=== PATIENT | male | born 1990 | race Caucasian/White ===

== ENCOUNTER 2016-07-28 19:40 | Emergency (ER) | payer OTHER ==
[~2016-07-28] VITALS: Ht 177.8 cm; Wt 119.1 kg
[2016-07-28] MEDS ORDERED: MIRALAX17 GM PO (23:45)
[2016-07-28 23:57] VITALS: BP 125/79
== END 2016-07-28 23:58 | disposition home or self-care (01) ==
LOC: EME 19:40
DX: F84.0 Autistic disorder (principal); F79 Unspecified intellectual disabilities; R45.4 Irritability and anger; K59.00 Constipation, unspecified
CPT/HCPCS: 74000; 99281; 99284

== ENCOUNTER 2016-10-22 12:04 | Emergency (ER) | payer OTHER ==
[~2016-10-22] VITALS: Ht 172.7 cm; Wt 120.6 kg
[~2016-10-22 12:04] MED LIST: MIRALAX17 GM PO
[2016-10-22 13:02] LABS: EOSINOPHIL (%) 2.1 % (0-5); EOSINOPHIL COUNT 0.1 K/uL (0-0.3); HEMATOCRIT 44.7 % (38.0-50.0); IMMATURE GRANULOCYTE (%) 0.3 % (0.0-0.7); LYMPHOCYTE COUNT 2.5 K/uL (1.0-2.8); MCH 29.3 PG (29.0-34.0); MCHC 33.3 G/DL (30.0-36.0); MEAN PLAT.VOLUME 10.6 uM^3 (9.0-12.4); MONOCYTE (%) 9.3 % (3-12); MONOCYTE COUNT 0.6 K/uL (0-0.8); NEUTROPHIL (%) 47.7 % (45-76); PLATELET COUNT 266 K/uL (156-360); RBC DIS.WIDTH-CV 12.4 % (11.8-14.6); RED BLOOD COUNT 5.08 M/uL (4.00-5.50); WHITE BLOOD COUNT 6.2 K/uL (4.1-10.2)
[2016-10-22 13:12] LABS: CHLORIDE 105 mEq/L (99-109); SODIUM 141 mEq/L (136-147)
[2016-10-22 13:14] LABS: GLUCOSE 101 mg/dL (70-99)
[2016-10-22 13:16] LABS: ANION GAP 11 MEQ/L (2-14)
[2016-10-22 13:18] LABS: GFR ESTIMATE (CALCULATED) > 59 mL/min/
[2016-10-22 13:19] LABS: UREA NITROGEN (BUN) 6 mg/dL (9-23)
[2016-10-22 14:12] LABS: ADD MIUA? NO; BILIRUBIN NEGATIVE; BLOOD NEGATIVE; COLOR YELLOW ((YELLOW)); GLUCOSE (STRIP) NEGATIVE; KETONES NEGATIVE; LEUKOCYTES NEGATIVE; NITRITE NEGATIVE; PROTEIN (STRIP) NEGATIVE; SPECIFIC GRAVITY 1.008 (1.000-1.030); UROBILINOGEN 0.2 MG/DL (0.2-1.0)
[2016-10-22 14:27] LABS: AMPHETAMINE NEGATIVE (500 ng/mL); BARBITURATES NEGATIVE (200 ng/mL); BENZODIAZEPINES NEGATIVE (150 ng/mL); COCAINE NEGATIVE (150 ng/mL); INTERNAL CONTROLS VALID? YES; METHADONE NEGATIVE (200 ng/mL); METHAMPHETAMINE NEGATIVE (500 ng/mL); OPIATES (MORPHINE) NEGATIVE (100 ng/mL); OXYCODONE NEGATIVE (100 ng/mL); PHENCYCLIDINE NEGATIVE (25 ng/mL); PROPOXYPHENE NEGATIVE (300 ng/mL); THC CANNABINOIDS NEGATIVE (50 ng/mL); TRICYCLIC ANTIDEPRESSANTS NEGATIVE (300 ng/mL)
[2016-10-22 16:05] VITALS: BP 176/74
== END 2016-10-22 16:06 | disposition home or self-care (01) ==
LOC: EME 12:04
PROVIDERS: Emergency Medicine
DX: F41.9 Anxiety disorder, unspecified (principal); F84.0 Autistic disorder; F79 Unspecified intellectual disabilities; E78.5 Hyperlipidemia, unspecified; F90.9 Attention-deficit hyperactivity disorder, unspecified type; J30.9 Allergic rhinitis, unspecified
CPT/HCPCS: 80048; 81003; 85025; 99281; 99283

== ENCOUNTER 2016-12-19 19:04 | Emergency (ER) | payer OTHER ==
[~2016-12-19] VITALS: Ht 172.7 cm; Wt 113.6 kg
[2016-12-19 22:34] VITALS: BP 150/108
== END 2016-12-19 22:34 | disposition home or self-care (01) ==
LOC: EME 19:04
DX: S61.411A Laceration without foreign body of right hand, initial encounter (principal); F84.0 Autistic disorder; F90.9 Attention-deficit hyperactivity disorder, unspecified type; Z23 Encounter for immunization; W25.XXXA Contact with sharp glass, initial encounter
CPT/HCPCS: 73110; 99281; 99284